=== PATIENT | female | born 1990 | race Caucasian/White ===

== ENCOUNTER 2020-07-14 18:00 | Inpatient (IN) | payer BC ==
[2020-07-14] MEDS ORDERED: Carboprost 250 MCG/ML AMP IM PRN (19:18)
[2020-07-14] MEDS ORDERED: HYDROcodone/Acetaminophen 5/325 mg Tablet PO PRN (19:18)
[2020-07-14] MEDS ORDERED: Acetaminophen 500 MG TAB PO PRN (19:18)
[2020-07-14] MEDS ORDERED: Butorphanol Tartrate 1 MG/ML VIAL SLOW IVP PRN (19:18)
[2020-07-14] MEDS ORDERED: Misoprostol 200 MCG TAB PR PRN (19:18)
[2020-07-14] MEDS ORDERED: Diphenoxylate HCl/Atropine Tablet PO PRN (19:18)
[2020-07-14] MEDS ORDERED: hydrALAZINE 20 MG/ML VIAL SLOW IVP PRN (19:18)
[2020-07-14] MEDS ORDERED: Lidocaine 1% (PF) 30 ML VIAL SC PRN (19:18)
[2020-07-14] MEDS ORDERED: Methylergonovine 0.2 MG/ML VIAL IM PRN (19:18)
[2020-07-14] MEDS ORDERED: NS / Oxytocin 40 units/1000ml 1,000 ML IV PRN (19:18)
[2020-07-14] MEDS ORDERED: Zolpidem Tartrate 5 MG TAB PO PRN (19:18)
[2020-07-14] MEDS ORDERED: Ibuprofen 800 MG TAB PO PRN (19:18)
[2020-07-14] MEDS ORDERED: Promethazine HCl 25 MG/ML VIAL IM PRN (19:18)
[2020-07-14] MEDS: Lactated Ringer's 1,000 ML IV SCH (19:45)
[2020-07-14] MEDS: Misoprostol 100 MCG TAB VAG SCH (20:24)
[2020-07-14 20:47] VITALS: BMI 35.2
[2020-07-14 21:23] LABS: Hemoglobin 10.8 g/dL (12.0-15.5); Mean Corpuscular HGB CONC 31.7 g/dL (32.0-36.0); Mean Corpuscular Hemoglobin 28.6 pg (27.0-33.0); Mean Corpuscular Volume 90.5 fl (81.6-98.3); Mean Platelet Volume 9.8 fl (7.4-10.4); Platelet Count 219 10x3/uL (150-450); RBC Distribution Width 16.1 % (11.5-14.5); Red Blood Cell (RBC) Count 3.77 10x6/uL (3.90-5.03); White Blood Cell (WBC) Count 7.7 10x3/uL (3.5-10.5)
[2020-07-14 22:16] LABS: Syphilis Antibody Nonreactive (Nonreactive); Syphilis Antibody Index 0.11 S/CO (<1.00 Non-Reactive)
[2020-07-14 22:17] LABS: Hep B Surf Ag Non-Reactive S/CO (NonReactive)
[2020-07-14 22:35] LABS: HBSAg Index 0.16 S/CO (0-0.99)
[2020-07-15] MEDS: Misoprostol 100 MCG TAB VAG SCH (02:45)
[2020-07-15] MEDS ORDERED: NS w/ Oxytocin 30 units 500 ML ONE (08:41)
[2020-07-15] MEDS ORDERED: Fentanyl 4 mcg/Bup 0.1% Cadd 100 ML ONE ×2 (08:48→23:37)
[2020-07-15] MEDS ORDERED: Lactated Ringer's 500 ML IV PRN (09:24)
[2020-07-15] MEDS ORDERED: Acetaminophen 325 MG TAB PO PRN (09:24)
[2020-07-15] MEDS: Lactated Ringer's 1,000 ML IV SCH (09:24)
[2020-07-15] MEDS ORDERED: diphenhydrAMINE 50 MG/ML VIAL IVP PRN (09:24)
[2020-07-15] MEDS ORDERED: Ondansetron PF 4 MG/2 ML Vial IVP PRN (09:24)
[2020-07-15] MEDS ORDERED: Naloxone HCl 0.4 mg/ml Vial IVP PRN ×2 (09:24)
[2020-07-15] MEDS ORDERED: Promethazine HCl 25 MG/ML VIAL IM PRN (09:24)
[2020-07-15] MEDS ORDERED: Communication Order-Pharmacy FS PRN (09:30)
[2020-07-15] MEDS ORDERED: ePHEDrine Sulfate 50 MG/10 ML VIAL SLOW IVP PRN (09:39)
[2020-07-15] MEDS: Ondansetron PF 4 MG/2 ML Vial IVP PRN ×2 (09:46→17:46)
[2020-07-15] MEDS: Fentanyl 4 mcg/Bupivacaine 0.1% Cassette 100 ML EPIDURAL SCH ×2 (17:49→23:30)
[2020-07-16] MEDS ORDERED: Methylergonovine 0.2 MG/ML VIAL ONE (02:42)
[2020-07-16] MEDS: Lactated Ringer's 1,000 ML IV SCH ×2 (02:55→09:41)
[2020-07-16] MEDS ORDERED: NS w/ Oxytocin 30 units 500 ML ONE (03:22)
[2020-07-16] MEDS: Misoprostol 100 MCG TAB VAG SCH ×2 (04:06→04:07)
[2020-07-16] MEDS ORDERED: Preparation H Ointment 28 GM TUBE PR PRN (04:08)
[2020-07-16] MEDS ORDERED: Bisacodyl 10 MG SUPP PR PRN (04:08)
[2020-07-16] MEDS ORDERED: hydrALAZINE 20 MG/ML VIAL SLOW IVP PRN (04:08)
[2020-07-16] MEDS ORDERED: Benzocaine-Menthol 82.5 ML CAN TOP PRN (04:08)
[2020-07-16] MEDS ORDERED: diphenhydrAMINE 25 MG CAP PO PRN (04:08)
[2020-07-16] MEDS ORDERED: NS / Oxytocin 40 units/1000ml 1,000 ML IV SCH (04:08)
[2020-07-16] MEDS ORDERED: HYDROcodone/Acetaminophen 5/325 mg Tablet PO PRN ×2 (04:08)
[2020-07-16] MEDS ORDERED: Lanolin Ointment 7 GM TUBE TOP PRN (04:08)
[2020-07-16] MEDS ORDERED: Ondansetron PF 4 MG/2 ML Vial IVP PRN (04:08)
[2020-07-16] MEDS ORDERED: Milk Of Magnesia 30 ML UDCUP PO PRN (04:08)
[2020-07-16] MEDS: Ibuprofen 800 MG TAB PO SCH ×3 (06:52→22:06)
[2020-07-16] MEDS ORDERED: Adacel (T-DAP) 0.5 ML SYRINGE IM ONE (09:00)
[2020-07-16] MEDS: Prenatal Vitamin 1 TAB PO SCH (09:10)
[2020-07-16] MEDS: Docusate Calcium (SURFAK) 240 MG CAP PO SCH ×2 (09:10→22:06)
[2020-07-16] MEDS: Ferrous Sulfate 325 MG TAB PO SCH ×2 (09:41→18:53)
[2020-07-17] MEDS: Ibuprofen 800 MG TAB PO SCH ×3 (05:42→20:17)
[2020-07-17] MEDS: Ferrous Sulfate 325 MG TAB PO SCH ×2 (07:51→14:52)
[2020-07-17] MEDS: Prenatal Vitamin 1 TAB PO SCH (08:57)
[2020-07-17] MEDS: Docusate Calcium (SURFAK) 240 MG CAP PO SCH ×2 (08:58→20:17)
[2020-07-18] MEDS: Ibuprofen 800 MG TAB PO SCH (05:36)
[2020-07-18] MEDS: Ferrous Sulfate 325 MG TAB PO SCH (07:46)
[2020-07-18 08:15] VITALS: BP 134/79; TEMP 98.2
[2020-07-18] MEDS: Prenatal Vitamin 1 TAB PO SCH (09:51)
[2020-07-18] MEDS: Docusate Calcium (SURFAK) 240 MG CAP PO SCH (09:51)
== END 2020-07-18 14:20 | disposition home or self-care (01) | DRG 807 ==
LOC: CSHLD 20:03 → CSHPP 07-16 06:48
PROVIDERS: ADMIT Student in an Organized Health Care Education/Training Program; ATTEND Student in an Organized Health Care Education/Training Program
PROC: 10E0XZZ Delivery of Products of Conception, External Approach (ICD-10-PCS; principal; 2020-07-16)
PROC: 0KQM0ZZ Repair Perineum Muscle, Open Approach (ICD-10-PCS; 2020-07-16)
PROC: 10907ZC Drainage of Amniotic Fluid, Therapeutic from Products of Conception, Via Natural or Artificial Opening (ICD-10-PCS; 2020-07-16)
PROC: 3E0P7VZ Introduction of Hormone into Female Reproductive, Via Natural or Artificial Opening (ICD-10-PCS; 2020-07-16)
DX: O99.892 Other specified diseases and conditions complicating childbirth (principal); Z37.0 Single live birth; O70.1 Second degree perineal laceration during delivery; Z3A.39 39 weeks gestation of pregnancy; M32.9 Systemic lupus erythematosus, unspecified
CPT/HCPCS: 51702; 85027; 86780; 86850; 86900; 86901; 87340; J0595; J2210; J2405; J2590; J7030